=== PATIENT | male | born 1975 | race Two or more races ===

== ENCOUNTER 2021-02-25 05:58 | Observation (INO) | payer OTHER ==
[~2021-02-25] VITALS: Ht 175.3 cm; Wt 86.0 kg
[2021-02-25 06:18] LABS: Basophils # (auto) 0.1 10 ^3/uL (0-0.2); Basophils % (auto) 0.8 % (0.0-2.0); Eosinophils # (auto) 0.1 10 ^3/uL (0-0.8); Eosinophils % (auto) 1.2 % (0.0-7.0); Hematocrit 44.3 % (41.0-53.0); Hemoglobin 15.7 g/dL (13.5-17.5); Lymphocytes # (auto) 2.1 10 ^3/uL (0.4-5.4); Lymphocytes % (auto) 26.2 % (10.0-50.0); Mean Corpuscular Hemoglobin 31.3 pg (28.0-32.0); Mean Corpuscular Hgb Conc. 35.5 g/dL (32.0-36.0); Mean Corpuscular Volume 88.2 fL (80.0-100.0); Monocytes # (auto) 0.4 10 ^3/uL (0-1.3); Monocytes % (auto) 5.6 % (0.0-12.0); Neutrophils # (auto) 5.2 10 ^3/uL (1.6-8.6); Neutrophils % (auto) 66.2 % (37.0-80.0); Nucleated Red Blood Cells % 0.1 %; Platelet Count (auto) 256 10^3/uL (140-450); Red Blood Cells 5.02 10^6/uL (4.5-5.90); White Blood Cell 7.8 10^3/uL (4.4-10.8)
[2021-02-25 06:34] LABS: Albumin 3.9 g/dL (3.4-5.0); Calcium 8.5 mg/dL (8.5-10.1); Potassium 3.8 mmol/L (3.5-5.1)
[2021-02-25 06:37] LABS: BUN/Creatinine Ratio 17.6; Bilirubin, Total 0.4 mg/dL (0.2-1.0); Total Protein 8.1 g/dL (6.4-8.2)
[2021-02-25] MEDS ORDERED: TAMSULOSIN HYDROCHLORIDE 0.4 MG CAP PO ONE (06:45)
[2021-02-25] MEDS ORDERED: KETOROLAC TROMETH 30 MG/ML 1ML VIAL IV ONE (06:45)
[2021-02-25] MEDS ORDERED: SODIUM CHLORIDE 0.9% 1,000 ML IV ONE ×2 (06:45)
[2021-02-25] MEDS ORDERED: ONDANSETRON HCL 4 MG/2 ML VIAL IV ONE (06:45)
[2021-02-25 07:16] LABS: Urine Bacteria NONE SEEN /hpf (None Seen); Urine Blood 3+ /uL (Negative); Urine Budding Yeast OCCASIONAL /hpf (None Seen); Urine Mucus FEW (None Seen); Urine Specific Gravity 1.022 (1.001-1.035); Urine WBC 5 /hpf (0 - 3)
[2021-02-25] MEDS ORDERED: ACETAMINOPHEN 500 MG TAB PO PRN (09:00)
[2021-02-25] MEDS ORDERED: TEMAZEPAM 15 MG CAP PO PRN (09:00)
[2021-02-25] MEDS ORDERED: traMADol HCL 50 MG TAB PO PRN (09:00)
[2021-02-25] MEDS ORDERED: DEXTROSE (50%) 50ML SYRG IV PRN (09:00)
[2021-02-25] MEDS ORDERED: PROMETHAZINE HCL 25 MG/ML 1ML IV PRN (09:00)
[2021-02-25] MEDS: SODIUM CHLORIDE 0.9% 1,000 ML IV SCH ×2 (09:38→18:48)
[2021-02-25] MEDS: cefTRIAXone 1GM/50ML D5W 50 ML IV SCH (09:38)
[2021-02-25] MEDS: FAMOTIDINE 20 MG TAB PO SCH ×2 (09:47→21:41)
[2021-02-25] MEDS ORDERED: MANNITOL FTV 25% 12.5 GM/50 ML 50 ML IV ONE ×2 (10:15→11:00)
[2021-02-25] MEDS: ACCU-CHEK COMFORT CURVE STRIP VI SCH ×3 (11:32→21:42)
[2021-02-25 12:45] VITALS: BP 125/78
[2021-02-25 13:04] VITALS: BP 125/78
[2021-02-25] MEDS: MORPHINE SULF INJ 2 MG/ML SYRINGE 1ML IV PRN ×2 (13:19→21:42)
[2021-02-25 17:00] VITALS: BP 116/75
[2021-02-25 22:00] VITALS: BP 149/81
[2021-02-26 05:04] VITALS: BP 119/64
[2021-02-26 05:34] LABS: Calcium 7.9 mg/dL (8.5-10.1); Magnesium 2.3 mg/dL (1.6-2.6); Potassium 3.5 mmol/L (3.5-5.1)
[2021-02-26 05:37] LABS: BUN/Creatinine Ratio 12.1
[2021-02-26] MEDS: SODIUM CHLORIDE 0.9% 1,000 ML IV SCH (07:16)
[2021-02-26] MEDS: ACCU-CHEK COMFORT CURVE STRIP VI SCH ×2 (07:17→12:25)
[2021-02-26] MEDS ORDERED: POTASSIUM CHL 20 Meq TABLET PO ONE (08:15)
[2021-02-26 08:49] VITALS: BP 110/70
[2021-02-26] MEDS: FAMOTIDINE 20 MG TAB PO SCH (09:03)
[2021-02-26] MEDS: cefTRIAXone 1GM/50ML D5W 50 ML IV SCH (09:04)
[2021-02-26 13:00] VITALS: BP 117/74
== END 2021-02-26 14:50 | disposition home or self-care (01) ==
LOC: ER 05:58 → OVERFLOW 08:51 → INTOOBSV 08:51 → WEST WING 11:01
PROVIDERS: ADMIT Internal Medicine; ATTEND Internal Medicine
DX: N20.0 Calculus of kidney (principal); Z20.822 Contact with and (suspected) exposure to COVID-19; K57.90 Diverticulosis of intestine, part unspecified, without perforation or abscess without bleeding; N13.30 Unspecified hydronephrosis; R73.9 Hyperglycemia, unspecified; K40.20 Bilateral inguinal hernia, without obstruction or gangrene, not specified as recurrent; D84.9 Immunodeficiency, unspecified; Z87.442 Personal history of urinary calculi; Z90.49 Acquired absence of other specified parts of digestive tract
CPT/HCPCS: 36415; 74176; 80048; 80053; 81001; 82962; 83036; 83735; 85025; 87086; 87426; 96361; 96365; 96366; 96368; 96375; 96376; 99284; G0378; J0696; J1885; J2150; J2270; J2405; J7030; 96367